=== PATIENT | female | born 1955 | race Caucasian/White ===

== ENCOUNTER 2016-06-29 11:26 | Emergency (ER) | payer MEDICAID ==
[2016-06-29 11:48] VITALS: BMI 22.8
[2016-06-29 11:51] VITALS: RESP 16
[2016-06-29] MEDS ORDERED: DiphenhydrAMINE 50 mg/ml Inj IVP STA ×2 (12:55→14:19)
--- NOTE | 2016-06-29 13:08 | ED PDOC ---
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 Patient states one month ago she had this same rash and was seen in the emergency room and was treated with IV medications which made the rash improved. Patient states the rash then went away in about one week ago she developed the rash again after eating pickles. Patient states the rash went away and then again last night she developed a rash after eating a green pepper. Patient denies difficulty breathing or swallowing. patient states she has some nasal congestion. She denies fevers but states that she has some chills. Patient denies chest pain or shortness of breath. Denies cough. Denies difficulty breathing or swallowing. She is complaining of some nausea. Patient states is the exact same symptoms that she had when she was in the emergency room one month ago. Patient denies any new, soaps, lotions, detergents or perfumes. Patient denies any new medications. Patient is requesting IV medication for allergy. (Lindy Seay) Past Medical History - Provider Review Nursing Documentation Reviewed: Yes - Travel History Have you recently traveled outside [place] w/in the past 3 mons?: No - Past History Past History: No Previous - Infectious Disease Hx of Infectious Diseases: None - Tetanus Immunization Tetanus Immunization: Unknown - Cardiac Hx Cardiac Disorders: No - Pulmonary Hx Respiratory Disorders: No - Neurological Hx Neurological Disorder: No - HEENT Hx HEENT Disorder: No - Renal Hx Renal Disorder: No - Endocrine/Metabolic Hx Endocrine Disorders: Yes Hx Hypothyroidism: Yes - Hematological/Oncological Hx Blood Disorders: No - Integumentary Hx Dermatological Disorder: No - Musculoskeletal/Rheumatological Hx Musculoskeletal Disorders: Yes Hx Arthritis: Yes - Gastrointestinal Hx Gastrointestinal Disorders: Yes - Genitourinary/Gynecological Hx Genitourinary Disorders: No - Psychiatric Hx Psychophysiologic Disorder: Yes Hx Anxiety: Yes Hx Depression: No Hx Emotional Abuse: No Hx Hallucinations: No Hx Panic Disorder: No Hx Post Traumatic Stress Disorder: No Hx Psychosis: No Hx Physical Abuse: No Hx Schizophrenia: No Hx Sexual Abuse: No Hx Substance Use: No - Past Surgical History Past Surgical History: No Previous - Anesthesia Hx Anesthesia: No Hx Anesthesia Reactions: No Hx Malignant Hyperthermia: No - Suicidal Assessment Feels Threatened In Home Enviroment: No Family/Social History - Physician Review Nursing Documentation Reviewed: Yes Family/Social History: Unknown Family HX Smoking Status: Never Smoked Hx Alcohol Use: No Hx Substance Use: No Hx Substance Use Treatment: No Allergies/Home Meds Allergies/Adverse Reactions: Allergies Penicillins Allergy (Verified 06/29/16 11:48) SWELLING Home Medications: Home Meds Medication Instructions Recorded Confirmed Omeprazole [Omeprazole] 05/10/16 Review of Systems - Review of Systems Constitutional: absent: Fatigue, Fevers ENT: Sinus Congestion. absent: Sore Throat Respiratory: absent: SOB, Cough Cardiovascular: absent: Chest Pain, Palpitations Gastrointestinal: Nausea. absent: Abdominal Pain, Diarrhea Genitourinary Female: absent: Dysuria, Frequency, Hematuria Musculoskeletal: absent: Arthralgias, Back Pain, Neck Pain Skin: Rash, Pruritis Neurological: absent: Headache, Dizziness Psychiatric: absent: Anxiety, Depression Physical Exam Vital Signs Reviewed: Yes Temperature: Afebrile Blood Pressure: Normal Pulse: Tachycardic Respiratory Rate: Normal Appearance: Positive for: Well-Appearing, Non-Toxic, Comfortable Pain Distress: None Mental Status: Positive for: Alert and Oriented X 3 - Systems Exam Head: Present: Atraumatic, Other (Multiple raised erythematous plaques noted to the face) Conjunctiva: Present: Normal Ears: Present: Normal, NORMAL TM Mouth: Present: Moist Mucous Membranes Pharnyx: Present: Normal. No: ERYTHEMA, EXUDATE, TONSILS ENLARGED, Peritonsilar Swelling, Uvular Deviation, Muffled/Hoarse Voice, Strider, Soft Palate/Uvular Edema Nose (External): Present: Atraumatic Neck: Present: Normal Range of Motion, Trachea Midline Respiratory/Chest: Present: Clear to Auscultation, Good Air Exchange. No: Respiratory Distress, Accessory Muscle Use Cardiovascular: Present: Regular Rate and Rhythm, Normal S1, S2. No: Murmurs Abdomen: Present: Normal Bowel Sounds. No: Tenderness, Distention, Peritoneal Signs, Rebound, Guarding Neurological: Present: GCS=15, Speech Normal Skin: Present: Warm, Dry, Rashes (Multiple erythematous raised plaques noted to the head face neck chest back abdomen arms and lower extremities bilaterally), Normal Color Psychiatric: Present: Alert, Oriented x 3 Vital Signs Temp Pulse Resp BP Pulse Ox 06/29/16 13:22 98.9 F 99 H 06/29/16 11:48 99 F 108 H 16 107/65 99 Medical Decision Making ED Course and Treatment: I was available for consultation during PA evaluation. The chart was reviewed by me, and I agree with disposition. The documented history was done by the physician corporate specialist. The documented physical exam was done by the physician corporate specialist. The documented procedures were done by the physician corporate specialist. (Myron Mitchell) 06/29/16 13:10 Patient is nontoxic well-appearing in no distress with stable vital signs no angioedema. Diffuse pruritic rash noted. Lungs are clear to auscultation bilaterally there is no wheezing noted. The airway is patent Benadryl 25 mg IV Solu-Medrol 125 mg IV Pepcid 20 mg IV Patient reassessment: After medications patient is feeling much better the lungs are clear to auscultation bilaterally the airway is patent the patient is speaking in full sentences. Rash improved. I advised taking Benadryl every 6 hours as needed for itch, Pepcid a once daily and prednisone daily x4 days. Advised patient to follow up with primary care physician within the next 2 days and return if symptoms worsen persist or if new symptoms develop Discharge instructions discussed in depth with the patient using a guest relations agent phone: Gin Feeder #[phone] Impression : rash Benadryl every 6 hours as needed for itch Prednisone once daily x4 days Pepcid one tablet daily Follow up with the primary care physician tomorrow Follow up with the senior regulatory affairs specialist within the next 2 days. Return if symptoms worsen persist or if new symptoms develop: Shortness of breath, feeling of throat closing, difficulty speaking or any other concerning symptoms develop (Lindy Seay) - Medication Orders Current Medication Orders: Discontinued Medications Diphenhydramine HCl (Benadryl) 25 mg IVP STAT STA Stop: 06/29/16 12:56 Last Admin: 06/29/16 13:15 Dose: 25 MG IVP Administration Document 06/29/16 13:15 SF (Rec: 06/29/16 13:16 [email or web address]) Charges for Administration # of IVP Administrations 1 Famotidine (Pepcid) 20 mg IVP STAT STA Stop: 06/29/16 12:56 Last Admin: 06/29/16 13:15 Dose: 20 MG IVP Administration Document 06/29/16 13:15 SF (Rec: 06/29/16 13:15 [email or web address] Charges for Administration # of IVP Administrations 1 Methylprednisolone (Solu-Medrol) 125 mg IVP STAT STA Stop: 06/29/16 12:56 Last Admin: 06/29/16 13:15 Dose: 125 MG IVP Administration Document 06/29/16 13:15 SF (Rec: 06/29/16 13:15 [email or web address] Charges for Administration # of IVP Administrations 1 Disposition/Present on Arrival - Present on Arrival Any Indicators Present on Arrival: No History of DVT/PE: No History of Uncontrolled Diabetes: No Urinary Catheter: No History of Decub. Ulcer: No History Surgical Site Infection Following: None - Disposition Have Diagnosis and Disposition been Completed?: Yes Disposition Time: 14:47 Patient Plan: Discharge - Disposition Diagnosis: Rash Disposition: HOME/ ROUTINE Patient Problems: Current Active Problems Problem Status Diagnosed Rash Acute Condition: GOOD Discharge Instructions (ExitCare): Urticaria (ED), Acute Rash (ED) Additional Instructions: Benadryl every 6 hours as needed for itch Prednisone once daily x4 days Pepcid one tablet daily Follow up with the primary care physician tomorrow Follow up with the senior regulatory affairs specialist within the next 2 days. Return if symptoms worsen persist or if new symptoms develop: Shortness of breath, feeling of throat closing, difficulty speaking or any other concerning symptoms develop Prescriptions: DiphenhydrAMINE [Benadryl] 25 mg PO Q6H #20 cap Famotidine [Pepcid] 20 mg PO DAILY #30 tab predniSONE [predniSONE Tab] 3 tab PO DAILY #12 tab Referrals: Kelley Monroe MD [Staff Provider] - Follow up with primary Rehan Locke MD [Primary Care Provider] - Follow up with primary Forms: WORK NOTE
[2016-06-29 13:27] VITALS: TEMP 98.9
[2016-06-29 15:15] VITALS: BP 110/70; PULSE 98; O2SAT 100
--- NOTE | 2016-06-29 21:46 | CARD ---
APPROVED REPORT EKG Measurement Heart [id number] <Conclusion> Normal sinus rhythm Normal ECG
== END 2016-06-29 15:15 | disposition home or self-care (01) ==
LOC: ED 11:26
DX: R21 Rash and other nonspecific skin eruption (principal); Z88.0 Allergy status to penicillin; E03.9 Hypothyroidism, unspecified
CPT/HCPCS: 93005; 96374; 96375; 99284; J1200; J2930

== ENCOUNTER 2016-07-23 18:45 | Emergency (ER) | payer MEDICAID ==
[2016-07-23 19:14] VITALS: TEMP 97.8; BMI 22.9
[2016-07-23] MEDS ORDERED: Sodium Chloride 0.9% 1,000 ML IV STA (19:36)
[2016-07-23] MEDS ORDERED: DiphenhydrAMINE 50 mg/ml Inj IVP STA (19:36)
--- NOTE | 2016-07-23 19:40 | ED PDOC ---
Arrival/HPI - General Chief Complaint: Abnormal Skin Integrity Time Seen by Provider: 07/23/16 19:31 - History of Present Illness Narrative History of Present Illness (Text): 61 y/o F p/w rash. Patient states she has been getting these rashes intermittently for 2 months or greater. She has been in this ER multiple times for this. States this episode began after eating salty cheese. She denies throat swelling or difficulty breathing. She complains of the rash to her extremities and trunk which she describes as urticaria and states are itchy. Past Medical History - Past History Past History: No Previous - Infectious Disease Hx of Infectious Diseases: None - Tetanus Immunization Tetanus Immunization: Unknown - Cardiac Hx Cardiac Disorders: No - Pulmonary Hx Respiratory Disorders: No - Neurological Hx Neurological Disorder: No - HEENT Hx HEENT Disorder: No - Renal Hx Renal Disorder: No - Endocrine/Metabolic Hx Endocrine Disorders: Yes Hx Hypothyroidism: Yes - Hematological/Oncological Hx Blood Disorders: No - Integumentary Hx Dermatological Disorder: No - Musculoskeletal/Rheumatological Hx Musculoskeletal Disorders: Yes Hx Arthritis: Yes - Gastrointestinal Hx Gastrointestinal Disorders: Yes - Genitourinary/Gynecological Hx Genitourinary Disorders: No - Psychiatric Hx Psychophysiologic Disorder: Yes Hx Anxiety: Yes Hx Depression: No Hx Emotional Abuse: No Hx Hallucinations: No Hx Panic Disorder: No Hx Post Traumatic Stress Disorder: No Hx Psychosis: No Hx Physical Abuse: No Hx Schizophrenia: No Hx Sexual Abuse: No Hx Substance Use: No - Past Surgical History Past Surgical History: No Previous - Anesthesia Hx Anesthesia: No Hx Anesthesia Reactions: No Hx Malignant Hyperthermia: No - Suicidal Assessment Feels Threatened In Home Enviroment: No Family/Social History Family/Social History: No Known Family HX Smoking Status: Never Smoked Hx Alcohol Use: No Hx Substance Use: No Hx Substance Use Treatment: No Allergies/Home Meds Allergies/Adverse Reactions: Allergies Penicillins Allergy (Verified 06/29/16 11:48) SWELLING Review of Systems - Physician Review All systems were reviewed & negative as marked: Yes - Review of Systems Constitutional: absent: Fevers Respiratory: absent: SOB Physical Exam - Physical Exam Narrative Physical Exam (Text): Constitutional: No acute distress. Head: Normocephalic. Atraumatic. Eyes: PERRL. ENT: Moist mucous membranes. Neck: Supple. Cardiovascular: Regular rate. Chest: No tenderness. Respiratory: Clear to auscultation bilaterally. Airway patent. No stridor. GI: Soft. Nontender. Nondistended. Back: No CVA tenderness. Musculoskeletal: No tenderness or swelling of extremities. Skin: Blanching, well circumscribed erythematous raised areas over trunk and extremities. Neurologic: Alert, no focal deficit. Vital Signs Reviewed: Yes Vital Signs Temp Pulse Resp BP Pulse Ox 07/23/16 20:52 84 18 115/75 98 07/23/16 19:13 97.8 F 92 H 98 H 113/70 18 L Temperature: Afebrile Blood Pressure: Normal Pulse: Regular Respiratory Rate: Normal Medical Decision Making ED Course and Treatment: Will treat with IV Benadryl, Pepcid, Steroids, and IVF. No respiratory distress. Instructed to follow up with desizing pad operator and to return to the ER for much worsening breathing or swelling. - Lab Interpretations Lab Results: Lab Results 07/23/16 20:00: Urine Color Yellow, Urine Appearance Clear, Urine pH 6.0, Ur Specific [place] 1.020, Urine Protein Negative, Urine Glucose (UA) Negative, Urine Ketones Negative, Urine Blood Negative, Urine Nitrate Negative, Urine Bilirubin Negative, Urine Urobilinogen 1.0 H, Ur Leukocyte Esterase Small H, Urine RBC Negative, Urine WBC 1 - 3, Ur Epithelial Cells 0 - 2, Urine Bacteria Trace - Medication Orders Current Medication Orders: Discontinued Medications Diphenhydramine HCl (Benadryl) 50 mg IVP STAT STA Stop: 07/23/16 19:37 Last Admin: 07/23/16 20:13 Dose: 50 mg Famotidine (Pepcid) 20 mg IVP STAT STA Stop: 07/23/16 19:37 Last Admin: 07/23/16 20:13 Dose: 20 mg Sodium Chloride (Sodium Chloride 0.9%) 1,000 mls @ 999 mls/hr IV .Q1H1M STA Stop: 07/23/16 20:36 Last Admin: 07/23/16 20:13 Dose: 999 mls/hr Methylprednisolone (Solu-Medrol) 125 mg IVP STAT STA Stop: 07/23/16 19:37 Last Admin: 07/23/16 20:13 Dose: 125 mg Disposition/Present on Arrival - Present on Arrival Any Indicators Present on Arrival: No History of DVT/PE: No History of Uncontrolled Diabetes: No Urinary Catheter: No History of Decub. Ulcer: No History Surgical Site Infection Following: None - Disposition Have Diagnosis and Disposition been Completed?: Yes Diagnosis: Allergic reaction Disposition: HOME/ ROUTINE Disposition Time: 21:31 Patient Plan: Discharge Patient Problems: Current Active Problems Problem Status Onset Allergic reaction Acute Condition: STABLE Discharge Instructions (ExitCare): General Allergic Reaction (ED) Prescriptions: DiphenhydrAMINE [Benadryl] 2 cap PO Q8 #25 cap Famotidine [Pepcid] 1 tab PO BID #14 tab Referrals: Rehan Locke MD [Primary Care Provider] - Follow up with primary
[2016-07-23 20:51] LABS: URINE BILIRUBIN NEGATIVE (NEGATIVE); URINE BLOOD NEGATIVE (NEGATIVE); URINE GLUCOSE (UA) NEGATIVE (NEGATIVE); URINE KETONE NEGATIVE (NEGATIVE); URINE LEUKOCYTE ESTERASE SMALL Leu/uL (NEGATIVE); URINE PROTEIN NEGATIVE mg/dL (<30 mg/dL)
[2016-07-23 20:52] VITALS: BP 115/75; PULSE 84; RESP 18; O2SAT 98
[2016-07-23 20:57] LABS: URINE COLOR YELLOW (YELLOW)
[2016-07-23 21:08] LABS: URINE APPEARANCE CLEAR (CLEAR); URINE BACTERIA TRACE (NEG); URINE EPITHELIAL CELLS 0 - 2 /hpf (0-5); URINE RBC NEGATIVE /hpf (0-2)
== END 2016-07-23 21:58 | disposition home or self-care (01) ==
LOC: ED 18:45
DX: T78.1XXA Other adverse food reactions, not elsewhere classified, initial encounter (principal); L27.2 Dermatitis due to ingested food; E03.9 Hypothyroidism, unspecified; Z88.0 Allergy status to penicillin
CPT/HCPCS: 81001; 87086; 96361; 96374; 96375; 99285; J1200; J2930; J7040

== ENCOUNTER 2016-07-25 16:46 | Emergency (ER) | payer MEDICAID ==
[2016-07-25 16:48] VITALS: BMI 22.9
[2016-07-25 16:59] VITALS: TEMP 99.5
[2016-07-25] MEDS ORDERED: DiphenhydrAMINE 12.5 mg/5 ml LIQ UD (5 ml) PO STA (17:20)
--- NOTE | 2016-07-25 17:21 | ED PDOC ---
Arrival/HPI - General Chief Complaint: Allergic Reaction Time Seen by Provider: 07/25/16 17:00 Historian: Patient - History of Present Illness Narrative History of Present Illness (Text): 07/25/16 17:21 This 61 y/o F p/w rash. Patient states she has been getting these rashes intermittently for 2 months or greater. She has been in this ER multiple times for this. Patient admits she did not fill her prescription medication. Patient denies fever, sob, cp, dysphagia, wheezing, recent travel, or sick contact. Symptom Course: Intermittent Context: Home Past Medical History - Provider Review Nursing Documentation Reviewed: Yes - Past History Past History: No Previous - Infectious Disease Hx of Infectious Diseases: None - Tetanus Immunization Tetanus Immunization: Unknown - Cardiac Hx Cardiac Disorders: No - Pulmonary Hx Respiratory Disorders: No - Neurological Hx Neurological Disorder: No - HEENT Hx HEENT Disorder: No - Renal Hx Renal Disorder: No - Endocrine/Metabolic Hx Endocrine Disorders: Yes Hx Hypothyroidism: Yes - Hematological/Oncological Hx Blood Disorders: No - Integumentary Hx Dermatological Disorder: No - Musculoskeletal/Rheumatological Hx Musculoskeletal Disorders: Yes Hx Arthritis: Yes - Gastrointestinal Hx Gastrointestinal Disorders: Yes - Genitourinary/Gynecological Hx Genitourinary Disorders: No - Psychiatric Hx Psychophysiologic Disorder: Yes Hx Anxiety: Yes Hx Depression: No Hx Emotional Abuse: No Hx Hallucinations: No Hx Panic Disorder: No Hx Post Traumatic Stress Disorder: No Hx Psychosis: No Hx Physical Abuse: No Hx Schizophrenia: No Hx Sexual Abuse: No Hx Substance Use: No - Past Surgical History Past Surgical History: No Previous - Anesthesia Hx Anesthesia: No Hx Anesthesia Reactions: No Hx Malignant Hyperthermia: No - Suicidal Assessment Feels Threatened In Home Enviroment: No Family/Social History - Physician Review Nursing Documentation Reviewed: Yes Family/Social History: No Known Family HX Smoking Status: Never Smoked Hx Alcohol Use: No Hx Substance Use: No Hx Substance Use Treatment: No Allergies/Home Meds Allergies/Adverse Reactions: Allergies Penicillins Allergy (Verified 07/25/16 16:54) SWELLING Review of Systems - Review of Systems Constitutional: Normal. absent: Fatigue, Weight Change, Fevers Eyes: Normal ENT: Normal Respiratory: Normal. absent: SOB, Cough, Wheezing Cardiovascular: Normal. absent: Chest Pain Gastrointestinal: Normal. absent: Abdominal Pain, Nausea, Vomiting Genitourinary Female: Normal. absent: Dysuria, Frequency, Hematuria Musculoskeletal: Normal Skin: Rash, Pruritis. absent: Skin Lesions, Laceration, Abscess, Ulcer, Cellulitis Neurological: Normal. absent: Headache, Dizziness Endocrine: Normal Hemo/Lymphatic: Normal Psychiatric: Normal Physical Exam Vital Signs Temp Pulse Resp BP Pulse Ox 07/25/16 20:31 88 17 106/80 97 07/25/16 19:14 80 16 105/70 99 07/25/16 18:48 81 18 104/68 100 07/25/16 16:57 99.5 F 90 16 102/70 100 Temperature: Afebrile Blood Pressure: Normal Pulse: Regular Respiratory Rate: Normal Appearance: Positive for: Well-Appearing, Non-Toxic, Comfortable Pain Distress: None Mental Status: Positive for: Alert and Oriented X 3 - Systems Exam Head: Present: Atraumatic, Normocephalic Pupils: Present: PERRL Extroacular Muscles: Present: EOMI Conjunctiva: Present: Normal Mouth: Present: Moist Mucous Membranes Nose (External): Present: Atraumatic Nose (Internal): Present: Normal Inspection. No: Engorged, Edematous, Rhinorrhea Neck: Present: Normal Range of Motion. No: Meningeal Signs Respiratory/Chest: Present: Clear to Auscultation, Good Air Exchange. No: Respiratory Distress, Accessory Muscle Use, Wheezes, Rales, Retracting, Rhonchi , Tachypneic Cardiovascular: Present: Regular Rate and Rhythm, Normal S1, S2. No: Murmurs Abdomen: Present: Normal Bowel Sounds. No: Tenderness, Distention, Peritoneal Signs Back: Present: Normal Inspection Upper Extremity: Present: Normal Inspection, Normal ROM, NORMAL PULSES, Neurovascularly Intact, Capillary Refill < 2s. No: Cyanosis, Edema Lower Extremity: Present: Normal Inspection, NORMAL PULSES, Neurovascularly Intact, Capillary Refill < 2 s. No: Edema, CALF TENDERNESS Neurological: Present: GCS=15, CN II-XII Intact, Speech Normal, Motor Func Grossly Intact, Normal Sensory Function, Normal Cerebellar Funct, Gait Normal, Memory Normal Skin: Present: Warm, Dry, Rashes (Generalized urticaria like rash. Blanches on palpation. No cellulitis), Normal Color Psychiatric: Present: Alert, Oriented x 3, Normal Insight, Normal Concentration Medical Decision Making ED Course and Treatment: 07/25/16 17:50 Dr. Kapadia came to examined patient for rash, since patient speaks Thai. Dr. Kapadia recommended Solumedrol, Pepcid, Benadryl. 07/25/16 18:20 Dr. Kapadia came to revaluate patient. I told Dr. Kapadia I have ordered Solumedrol IV, Pepcid PO, and Benadryl 25 mg PO. He stated patient continues with pruritic rash, and he is recommending Benadryl 25 mg IVP, Pepcid 20 mg IVP , and Atarax 20 MG TAB PO. Patient understood risk of SE and allergic reaction fro medication. She was also explained risk of AVN, DM, HTN, glaucoma, when patient are taking Steroid type drug like Solumedrol, and Prednisone. She still insisted for this medication. Re-evaluation Time: 18:20 Reassessment Condition: Re-examined, Improved - Medication Orders Current Medication Orders: Discontinued Medications Diphenhydramine HCl (Benadryl) 25 mg PO STAT STA Stop: 07/25/16 17:21 Last Admin: 07/25/16 17:36 Dose: 25 mg Diphenhydramine HCl (Benadryl) 25 mg IVP STAT STA Stop: 07/25/16 18:26 Last Admin: 07/25/16 18:43 Dose: 25 mg Famotidine (Pepcid) 40 mg PO STAT STA Stop: 07/25/16 17:21 Last Admin: 07/25/16 17:36 Dose: 40 mg Hydroxyzine HCl (Atarax) 25 mg PO STAT STA Stop: 07/25/16 18:26 Last Admin: 07/25/16 19:13 Dose: 25 mg Famotidine (Pepcid 20mg/50ml Premix) 20 mg in 50 mls @ 100 mls/hr IVPB STAT STA Stop: 07/25/16 18:54 Last Admin: 07/25/16 18:43 Dose: 100 mls/hr Methylprednisolone (Solu-Medrol) 125 mg IVP STAT STA Stop: 07/25/16 17:20 Last Admin: 07/25/16 17:36 Dose: 125 mg Disposition/Present on Arrival - Present on Arrival Any Indicators Present on Arrival: No History of DVT/PE: No History of Uncontrolled Diabetes: No Urinary Catheter: No History of Decub. Ulcer: No History Surgical Site Infection Following: None - Disposition Have Diagnosis and Disposition been Completed?: Yes Diagnosis: Rash and nonspecific skin eruption Disposition: HOME/ ROUTINE Disposition Time: 20:08 Patient Plan: Discharge Condition: GOOD Discharge Instructions (ExitCare): Urticaria (ED), Acute Rash (ED) Additional Instructions: Call private doctor for follow up visit in 1-2 days. Take medication as instructed. Return to emergency if symptoms worsen. Call Independent Film [facility] for further medical management of your rash Prescriptions: Famotidine [Pepcid] 40 mg PO DAILY #10 tablet Hydroxyzine Pamoate [Vistaril] 25 mg PO Q6H PRN #30 capsule PRN Reason: Rash Prednisone [Deltasone] 40 mg PO DAILY #8 tablet Referrals: Kelley Monroe MD [Staff Provider] - Follow up with primary
[2016-07-25] MEDS ORDERED: Famotidine 20mg/50ml 20 MG/50 ML BAG IVPB STA (18:25)
[2016-07-25] MEDS ORDERED: DiphenhydrAMINE 50 mg/ml Inj IVP STA (18:25)
[2016-07-25 20:31] VITALS: BP 106/80; PULSE 88; RESP 17; O2SAT 97
== END 2016-07-25 20:43 | disposition home or self-care (01) ==
LOC: ED 16:46
DX: R21 Rash and other nonspecific skin eruption (principal)
CPT/HCPCS: 96374; 96375; 99284; J1200; J2930

== ENCOUNTER 2017-04-13 07:51 | Day surgery (SDC) | payer MEDICAID ==
[2017-04-09 08:37] VITALS: BMI 20.5
[2017-04-13 08:34] VITALS: TEMP 98.6
[2017-04-13] MEDS ORDERED: Propofol 10 mg/ml Inj (20 ML) ONE (08:47)
[2017-04-13] MEDS ORDERED: Lactated Ringer's 1,000 ML IV SCH (10:15)
[2017-04-13 11:08] VITALS: PULSE 55; RESP 16; O2SAT 98
[2017-04-13 11:28] VITALS: BP 112/73
== END 2017-04-13 12:16 | disposition home or self-care (01) ==
LOC: ENDO 07:51
PROVIDERS: ATTEND Internal Medicine
DX: K92.1 Melena (principal); K64.8 Other hemorrhoids; R10.9 Unspecified abdominal pain; R10.2 Pelvic and perineal pain; E03.9 Hypothyroidism, unspecified
CPT/HCPCS: 45378; J2001; J2704; J7120

== ENCOUNTER 2018-01-19 15:39 | Emergency (ER) | payer MEDICAID ==
[2018-01-19 16:08] VITALS: BMI 25.0
--- NOTE | 2018-01-19 16:19 | ED PDOC ---
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 Pt states that the pain is located in two distinct locations, middle of the lower abdomen and left middle abdomen. Pt does not currently have pain. Pt denies fever, chills, chest pain, sob, n/v/d, hematochezia, melena, urinary complaints, vaginal complaints. Pt reports she came to the ED because she is able to get everything examined here without difficulty. Pt is requesting a vaginal examination to make sure everything is okay down there. She is requesting that a female do the vaginal examination. Pt had a colonoscopy in March 2017, which was inconclusive because of inadequate bowel prep. Repeat colonoscopy was recommended in 6 months. Pt was prescribed Miralax, which she took for a few months. Miralax helped, but she stopped taking it because she does not like taking medications. Pt has not followed up with the [facility]. PMD: [facility]: Di 01/19/18 17:17 Time/Duration: Other (5 months) Symptom Course: Intermittent, Worsening Quality: Aching <Silas Paul - Last Filed: 01/20/18 11:20> <Dwayne Walker - Last Filed: 01/20/18 15:02> - General Chief Complaint: Abdominal Pain Time Seen by Provider: 01/19/18 15:47 Past Medical History - Provider Review Nursing Documentation Reviewed: Yes - Past History Past History: No Previous - Infectious Disease Hx of Infectious Diseases: None - Tetanus Immunization Tetanus Immunization: Unknown - Cardiac Hx Pacemaker: No - Pulmonary Hx Respiratory Disorders: No - Neurological Hx Paralysis: No - HEENT Hx HEENT Disorder: No - Renal Hx Renal Disorder: No - Endocrine/Metabolic Hx Endocrine Disorders: Yes Hx Hypothyroidism: Yes - Hematological/Oncological Hx Blood Transfusions: No - Integumentary Hx Dermatological Disorder: No - Musculoskeletal/Rheumatological Hx Musculoskeletal Disorders: Yes - Gastrointestinal Hx Gastrointestinal Disorders: Yes - Genitourinary/Gynecological Hx Genitourinary Disorders: No - Psychiatric Hx Psychophysiologic Disorder: Yes Hx Anxiety: Yes Hx Depression: No Hx Emotional Abuse: No Hx Hallucinations: No Hx Panic Disorder: No Hx Post Traumatic Stress Disorder: No Hx Psychosis: No Hx Physical Abuse: No Hx Schizophrenia: No Hx Sexual Abuse: No Hx Substance Use: No - Past Surgical History Past Surgical History: No Previous - Anesthesia Hx Anesthesia Reactions: No Hx Malignant Hyperthermia: No - Suicidal Assessment Feels Threatened In Home Enviroment: No <Silas Paul - Last Filed: 01/20/18 11:20> Family/Social History - Physician Review Nursing Documentation Reviewed: Yes Family/Social History: Unknown Family HX Smoking Status: Never Smoked Hx Alcohol Use: No Hx Substance Use: No Hx Substance Use Treatment: No <Silas Paul - Last Filed: 01/20/18 11:20> Allergies/Home Meds <Silas Paul - Last Filed: 01/20/18 11:20> <Dwayne Walker - Last Filed: 01/20/18 15:02> Allergies/Adverse Reactions: Allergies Penicillins Allergy (Verified 01/19/18 16:08) SWELLING Home Medications: Home Meds Medication Instructions Recorded Confirmed RX: Levothyroxine [Synthroid] 50 mcg PO DAILY 04/09/17 01/19/18 Review of Systems - Review of Systems Constitutional: Normal Eyes: Normal ENT: Normal Respiratory: Normal Cardiovascular: Normal Gastrointestinal: Abdominal Pain Genitourinary Female: Normal Musculoskeletal: Normal Skin: Normal <Silas Paul - Last Filed: 01/20/18 11:20> Physical Exam Temperature: Afebrile Blood Pressure: Normal Pulse: Regular Respiratory Rate: Normal Appearance: Positive for: Well-Appearing, Non-Toxic, Comfortable Pain Distress: None Mental Status: Positive for: Alert and Oriented X 3 - Systems Exam Head: Present: Atraumatic, Normocephalic Extroacular Muscles: Present: EOMI Mouth: Present: Moist Mucous Membranes Respiratory/Chest: Present: Clear to Auscultation Cardiovascular: Present: Regular Rate and Rhythm, Normal S1, S2. No: Tachycardic Abdomen: Present: Normal Bowel Sounds. No: Tenderness, Distention, Rebound, Hernias Breast/Axillary: No: Discoloration, Erythema, Fluctuance, Masses (diffuse fibrocystic changes; sid Pierce RN), Swelling, Tender to Palpation Genitourinary/Pelvic Exam: No: Normal External Genitalia (Vaginal exam as per Happiness PA: (+) atrophic vaginitis), Vaginal Discharge, Vaginal Bleeding, Vaginal Lesions, Cervical Motion Tendernes Back: Present: Normal Inspection. No: CVA Tenderness Upper Extremity: Present: Normal Inspection, NORMAL PULSES, Capillary Refill < 2s Lower Extremity: Present: Normal Inspection, Capillary Refill < 2 s. No: CALF TENDERNESS, NORMAL PULSES Neurological: Present: GCS=15 Skin: Present: Warm, Dry Psychiatric: Present: Alert <Silas Paul - Last Filed: 01/20/18 11:20> Vital Signs Temp Pulse Resp BP Pulse Ox 01/19/18 17:55 98.7 F 71 16 104/81 97 01/19/18 16:20 96.1 F L 82 18 132/79 95 <Dwayne Walker - Last Filed: 01/20/18 15:02> Medical Decision Making ED Course and Treatment: 01/19/18 17:15 CBC, CMP, Lipase, EKG. 01/19/18 19:16 Pt is requesting a breast examination at this time due to something she noticed. Please see exam. We will refer her to OBGYN for follow up. Mammogram in March 2017 showed BIRADS 2 benign no evidence of malignancy. With the help of draw frame tender (Bengali), the attending and I discussed with the patient at length the need for outpatient follow up with OBGYN, GI and PMD. Pt agrees and will do so. <Silas Paul - Last Filed: 01/20/18 11:20> ED Course and Treatment: 01/20/18 15:01 patient seen and examined by myself. abdominal exam benign without focal tenderness. i was presents during breast exam accompanied with primary female RN on case. all discussion with patient were via [employer] interpreter. patient appeared to have good understanding plan and ED findings and will make the appr opriate follow up. - Lab Interpretations Lab Results: 01/19/18 18:00 Lab Results 01/19/18 18:21: Urine Color Yellow, Urine Appearance Clear, Urine pH 6.0, Ur Specific [place] 1.020, Urine Protein Negative, Urine Glucose (UA) Negative, Urine Ketones Negative, Urine Blood Trace-intact H, Urine Nitrate Negative, Urine Bilirubin Negative, Urine Urobilinogen 0.2, Ur Leukocyte Esterase Trace H, Urine RBC Pending, Urine WBC Pending 01/19/18 18:00: WBC 3.3 L, RBC 5.50, Hgb 14.1, Hct 42.7, MCV 77.6 L, MCH 25.6, MCHC 33.0, RDW 13.9, Plt Count 340, MPV 9.5, Gran % 49.4 L, Lymph % (Auto) 37.8 H, Tyrrell % (Auto) 12.8 H, Eos % (Auto) 0.0 L, Baso % (Auto) 0.0, Gran # 1.62, Lymph # (Auto) 1.2, Tyrrell # (Auto) 0.4, Eos # (Auto) 0.0, Baso # (Auto) 0.00 - EKG Interpretation EKG Interpretation (Text): 01/19/18 18:34 1615: nsr at 77 bpm, nml qrs, nml axis, no acute sttw abn Interpreted by ED Physician: Yes <Dwayne Walker - Last Filed: 01/20/18 15:02> Disposition/Present on Arrival - Present on Arrival Any Indicators Present on Arrival: No History of DVT/PE: No History of Uncontrolled Diabetes: No Urinary Catheter: No History of Decub. Ulcer: No History Surgical Site Infection Following: None - Disposition Have Diagnosis and Disposition been Completed?: Yes Disposition Time: 19:33 Patient Plan: Discharge <Silas Paul - Last Filed: 01/20/18 11:20> <Dwayne Walker - Last Filed: 01/20/18 15:02> - Disposition Diagnosis: Atrophic vaginitis, Abdominal pain Disposition: HOME/ ROUTINE Condition: GOOD Discharge Instructions (ExitCare): Atrophic Vaginitis Additional Instructions: You must follow up with a auto body straightener for the vaginal and breast issues. Call tomorrow to make an appointment. You may also discuss with your primary care doctor for referrals. OSVALDO GONZALES, thank you for letting us take care of you today. Your provider was Dr. Dwayne Walker and you were treated for abdominal pain and vaginal irritation. The emergency medical care you received today was directed at your acute symptoms. If you were prescribed any medication, please fill it and take as directed. It may take several days for your symptoms to resolve. Return to the Emergency Department if your symptoms worsen, do not improve, or if you have any other problems. Please contact your doctor or call one of the physicians/clinics you have been referred to that are listed on the Patient Visit Information form that is included in your discharge packet. Bring any paperwork you were given at discharge with you along with any medications you are taking to your follow up visit. Our treatment cannot replace ongoing medical care by a primary care provider outside of the emergency department. Thank you for allowing the [facility] team to be part of your care today. If you had an X-Ray or CT scan: A Radiologist will review the ED reading if any change in treatment is needed we will contact you. If you had a blood, urine, or wound culture: It will take several days for the results, if any change in treatment is needed we will contact you. If you had an STI test: It will take 48 hours for the results. Please call after 1 week if you have not heard back. Referrals: [facility] [Outside] - Follow up with primary Shira Vang MD [Staff Provider] - Follow up with primary Lavon Samaniego DO [Staff Provider] - Follow up with primary Forms: [employer] ([place] Citizen)
--- NOTE | 2018-01-19 17:50 | CARD ---
APPROVED REPORT Date of service: 01/19/2018 EKG Measurement Heart [id number] <Conclusion> Normal sinus rhythm Possible Left atrial enlargement Borderline ECG
[2018-01-19 18:24] LABS: GRAN # 1.62 (1.4-6.5); GRAN % 49.4 % (50.0-68.0); HEMOGLOBIN 14.1 g/dL (12.0-16.0); LYMPH # 1.2 (1.2-3.4); LYMPH % 37.8 % (22.0-35.0); MEAN CELL VOLUME 77.6 fl (80.0-105.0); MEAN CORPUSCULAR HEMOGLOBIN 25.6 pg (25.0-35.0); MEAN PLATELET VOLUME 9.5 fl (7.0-11.0); MONO # 0.4 (0.1-0.6); MONO % 12.8 % (1.0-6.0); RBC 5.5 10^6/uL (3.5-6.1); RED CELL DISTRIBUTION WIDTH 13.9 % (11.5-14.5); WHITE BLOOD COUNT 3.3 10^3/uL (4.5-11.0)
[2018-01-19 18:27] LABS: URINE BILIRUBIN NEGATIVE (NEGATIVE); URINE BLOOD TRACE-INTACT (NEGATIVE); URINE GLUCOSE (UA) NEGATIVE (NEGATIVE); URINE LEUKOCYTE ESTERASE TRACE Leu/uL (NEGATIVE); URINE PROTEIN NEGATIVE mg/dL (<30 mg/dL); URINE UROBILINOGEN 0.2 E.U./dL (<1 E.U./dL)
[2018-01-19 18:28] LABS: URINE APPEARANCE CLEAR (CLEAR); URINE COLOR YELLOW (YELLOW)
[2018-01-19 18:52] VITALS: TEMP 97.9
[2018-01-19 19:14] LABS: BLOOD UREA NITROGEN 17 mg/dL (7-21); GFR NON-AFRICAN AMERICAN > 60
[2018-01-19 19:15] LABS: ALB/GLOB RATIO 1.3 (1.1-1.8); ALBUMIN 4.5 g/dL (3.0-4.8); ALT/SGPT 27 U/L (7-56); AST/SGOT 35 U/L (14-36); CALCIUM 9.5 mg/dL (8.4-10.5); LIPASE 97 U/L (23-300)
[2018-01-19 19:16] LABS: URINE BACTERIA FEW (NEG)
[2018-01-19 20:13] VITALS: BP 110/62; PULSE 75; RESP 18; O2SAT 100
== END 2018-01-19 20:13 | disposition home or self-care (01) ==
LOC: ED 15:39
DX: N95.2 Postmenopausal atrophic vaginitis (principal); R10.9 Unspecified abdominal pain